=== PATIENT | female | born 1950 | race Caucasian/White ===

== ENCOUNTER 2017-04-15 11:04 | Day surgery (SDC) | payer MEDICARE, BC ==
--- NOTE | ~2017-04-15 | CN ---
Consultation Report [facility] [address] [place]. [address] NAME: GASTON VALENTIN : [birth year] STATUS : [facility]#: [id number] AGE: 66 ADM/REG DATE : 04/15/17 MR#: [id number] REPORT SERV DATE: 04/19/17 DICTATED BY: CODIE RUIZ DATE: 04/15/17 REPORT STATUS : Draft TRANSCRIBED BY: MODL DATE: 04/15/17 DATE OF CONSULTATION: 04/15/2017 HISTORY OF PRESENT ILLNESS: Gaston Valentin is a 66-year-old female, who presented to the GI lab today for a colonoscopy and EGD after having been seen in the office recently by my nurse practitioner for evaluation of iron-deficiency anemia. This patient was referred by Dr. Luis Antonio Knott for iron-deficiency anemia with a hemoglobin of 9.7 on 03/12/2017. She has had increased fatigue. She had occasional mid abdominal pain. She has had last long-standing reflux, taking omeprazole. She does have some nausea. She had left kidney removed for cancer in 2013. She is on Coumadin for DVTs and PEs, followed by Dr. Whelan in [place]. She had a colonoscopy in 2004 and no polyps. There is no prior history of EGD. She has a sister with colon polyps. The patient after having been seen in the office on 03/18/2017 was set up for the colon EGD. Stool Hemoccults were negative as an outpatient. Her hemoglobin on 04/07/2017 was 12.1. It was discerned by Dr. Whelan, her primary doctor that she needed to have a Lovenox bridge and he was managing that. The patient told me that she took her Lovenox today at 10:00 a.m. with a scheduled procedure for 1300 hours. She could not proceed with the colonoscopy because of the Lovenox having been given. PAST MEDICAL HISTORY: 1. Kidney cancer. 2. Diabetes mellitus. 3. Iron deficiency anemia. PAST SURGICAL HISTORY: 1. Cholecystectomy. 2. Hysterectomy. 3. Left oophorectomy. 4. Splenectomy. 5. Tonsillectomy. 6. Carpal tunnel release. MEDICATIONS: See list. ALLERGIES: NONE KNOWN. SOCIAL HISTORY: She was here with her daughter Nelsy. She does not smoke. FAMILY HISTORY: She has family history of colon polyps in her sister. REVIEW OF SYSTEMS: All system reviewed, negative except that noted in history of present illness. PHYSICAL EXAMINATION: Consultation Report [place] [id number] [place]. [address] NAME: GASTON VALENTIN : [birth year] STATUS : [facility] PAT#: [id number] AGE: 66 ADM/REG DATE : 04/15/17 MR#: [id number] REPORT SERV DATE: 04/19/17 DICTATED BY: CODIE RUIZ DATE: 04/15/17 REPORT STATUS : Draft TRANSCRIBED BY: SHANTANU DATE: 04/15/17 GENERAL: She is oriented x4, in no acute distress. VITAL SIGNS: She is afebrile. Vital signs stable. ABDOMINAL: Examination revealed active bowel sounds. Soft, nontender. IMPRESSION: 1. Iron deficiency anemia. 2. I am unable to proceed with colonoscopy, EGD today due to the patient's use of Lovenox as we like to have the Lovenox off 12 hours beforehand. We will try to arrange for the patient have the colonoscopy tomorrow afternoon at 4 o'clock if okay with her primary doctor with appropriate management of her diabetic medication. This can be done, she will take Lovenox tonight, 2 L of GoLYTELY tomorrow morning, be n.p.o. after 07:00 a.m. RECOMMENDATIONS: We will attempt to schedule colonoscopy for Wednesday at 04:00 p.m., otherwise will need to be scheduled on another date. As of the time of this dictation, I am waiting to hear from the GI lab who is in contact with Dr. Whelan's office regarding management of her diabetes. KELLY/SHANTANU Codie Ruiz M.D. / [id number] CC: Juan Worrell MD Davey B. Daniel, M.D.
[~2017-04-15 11:04] MED LIST: ATARAX50B PO; AZO-STANDARD95 MG PO; CHILDRENS VITAMIN; COUMADIN6 MG PO; FLEX PO; GLUCOPHAGE1000 MG PO; KLONO5 PO; L80 PO; LIPITOR10 PO; LOVENOX1C SC; MIRALAX POWDER1 PKT PO; NEUR100 PO; NORCO1 TAB PO; POTASSIUM PO; PRESERVISION A1 EACH PO; PRILO PO; RESTORIL30 MG PO; TOUJEO SQ; VICTOZA18 MG/3 ML SC; VITAMIN B-1500 MG PO; VITC500 PO
[2017-04-15 12:27] LABS: INTERNATIONAL NORMAL RATI 1.2 UNITS (-); PROTIME (NOT ORD) 14.6 SEC (12.0-14.5)
[2017-04-20] MEDS ORDERED: GLUCOPHAGE1000 MG PO (15:09)
[2017-04-22] MEDS ORDERED: KLOR-CON M2020 MEQ PO (10:38)
[2017-04-22] MEDS ORDERED: FLUCON150 PO (10:40)
[2017-04-22] MEDS ORDERED: LEVAQUIN750 MG PO (10:40)
[2017-04-22] MEDS ORDERED: FERROUS SULF325 M1 PO (10:42)
== END 2017-04-15 23:59 | disposition home health service (06) ==
LOC: DMU 11:04
PROVIDERS: Internal Medicine Gastroenterology
DX: D50.9 Iron deficiency anemia, unspecified (principal); J45.909 Unspecified asthma, uncomplicated; E11.22 Type 2 diabetes mellitus with diabetic chronic kidney disease; K21.9 Gastro-esophageal reflux disease without esophagitis; N18.3 Chronic kidney disease, stage 3 (moderate); Z86.711 Personal history of pulmonary embolism; Z79.891 Long term (current) use of opiate analgesic; Z79.4 Long term (current) use of insulin; Z79.899 Other long term (current) drug therapy; Z88.0 Allergy status to penicillin; Z90.49 Acquired absence of other specified parts of digestive tract; Z98.890 Other specified postprocedural states; Z87.442 Personal history of urinary calculi; Z90.710 Acquired absence of both cervix and uterus; Z90.81 Acquired absence of spleen; Z53.9 Procedure and treatment not carried out, unspecified reason
CPT/HCPCS: 82962; 85610

== ENCOUNTER 2017-04-16 15:07 | Day surgery (SDC) | payer MEDICARE, BC ==
--- NOTE | ~2017-04-16 | EGD ---
EGD REPORT [facility] [address] [address] NAME: GASTON VALENTIN : 46 STATUS : [facility] PAT#: [id number] AGE: 66 ADM/REG DATE : 04/16/17 MR#: [id number] REPORT SERV DATE: 04/16/17 DICTATED BY: CODIE RUIZ DATE: 04/16/17 REPORT STATUS : Draft TRANSCRIBED BY: [facility] DATE: 04/16/17 Endoscopy Center Patient Name: Gaston Valentin Date of : 1950 Attending MD: CODIE RUIZ MD Procedure Date No Time: 04/16/2017 Procedure: Upper GI endoscopy Indications: Iron deficiency anemia, Gastro-esophageal reflux disease, Nausea Referring MD: NEDA HANLEY MD, ANDREE COVINGTON Medicines: See the Anesthesia note for documentation of the administered medications Complications: No immediate complications. Procedure: After obtaining informed consent, the endoscope was passed under direct vision. Throughout the procedure, the patient's blood pressure, pulse, and oxygen saturations were monitored continuously. The GIF H190 [id number] was introduced through the mouth, and advanced to the second part of duodenum. The upper GI endoscopy was accomplished without difficulty. The patient tolerated the procedure well. Findings: The 2nd part of the duodenum was normal. Biopsies were taken with a cold forceps for histology. Mild inflammation was found in the gastric antrum. Biopsies were taken with a cold forceps for histology. The cardia and gastric fundus were normal on retroflexion. A small hiatus hernia was present. Impression: - Normal 2nd part of the duodenum. Biopsied. - Gastritis. Biopsied. - Hiatus hernia. Recommendation: - Patient has a contact number available for emergencies. The signs and symptoms of potential delayed complications were discussed with the patient. Return to normal activities tomorrow. Written discharge instructions were provided to the patient. - Regular diet. - Continue present medications. - FOR YOUR BIOPSY RESULTS: Please go to [email or web address] and register to receive your results via the portal. Your biopsy results will be posted there in about 7 to 10 days. IF you do not see EGD REPORT [address] [address] NAME: GASTON VALENTIN : 46 STATUS : [facility] PAT#: [id number] AGE: 66 ADM/REG DATE : 04/16/17 MR#: [id number] REPORT SERV DATE: 04/16/17 DICTATED BY: CODIE RUIZ DATE: 04/16/17 REPORT STATUS : Draft TRANSCRIBED BY: [employer] DATE: 04/16/17 result in 10 days, call office. Procedure Code(s): --- Professional --- 69239, Esophagogastroduodenoscopy, flexible, transoral; with biopsy, single or multiple Diagnosis Code(s): --- Professional --- K29.70, Gastritis, unspecified, without bleeding K44.9, Diaphragmatic hernia without obstruction or gangrene D50.9, Iron deficiency anemia, unspecified K21.9, Gastro-esophageal reflux disease without esophagitis R11.0, Nausea CPT copyright 2013 [employer]. All rights reserved. The codes documented in this report are preliminary and upon fleet manager/dispatch review may be revised to meet current compliance requirements. Codie Ruiz MD CODIE RUIZ MD 04/16/2017 5:17 PM This report has been signed electronically. Number of Addenda: 0 Note Initiated On: 04/16/2017 5:04 PM Scope Withdrawal Time 0 hours 0 minutes 0 seconds [address] [place] [address]
--- NOTE | ~2017-04-16 | EGD ---
EGD REPORT [facility] [address] [address] NAME: GASTON VALENTIN : 46 STATUS : [facility] PAT#: [id number] AGE: 66 ADM/REG DATE : 04/16/17 MR#: [id number] REPORT SERV DATE: 04/16/17 DICTATED BY: CODIE RUIZ DATE: 04/16/17 REPORT STATUS : Draft TRANSCRIBED BY: [employer] DATE: 04/16/17 Endoscopy Center Patient Name: Gaston Valentin Date of : 1950 Attending MD: CODIE RUIZ MD Procedure Date No Time: 04/16/2017 Procedure: Colonoscopy Indications: Iron deficiency anemia Referring MD: NEDA SHERMAN MD Medicines: See the Anesthesia note for documentation of the administered medications Complications: No immediate complications. Procedure: Pre-Anesthesia Assessment: - ASA Grade Assessment: III - A patient with severe systemic disease. After I obtained informed consent, the scope was passed under direct vision. Throughout the procedure, the patient's blood pressure, pulse, and oxygen saturations were monitored continuously. The PCF [id number] was introduced through the anus and advanced to the cecum, identified by appendiceal orifice and ileocecal valve. The colonoscopy was performed without difficulty. The patient tolerated the procedure well. The quality of the bowel preparation was adequate. Findings: The perianal and digital rectal examinations were normal. Internal hemorrhoids were found during retroflexion and were medium-sized. 10-12 large angioectasias were found in the ascending colon. A few angioectasias were found in the transverse colon. A few angioectasias were found in the descending colon. A few angioectasias were found in the sigmoid colon. A pedunculated polyp was found in the transverse colon. The polyp was 15 mm in size. The polyp was removed with a hot snare. Resection and retrieval were complete. To prevent bleeding post-intervention, one hemostatic clip was successfully placed. A sessile polyp was found in the recto-sigmoid colon. The polyp was 10 mm in size. The polyp was removed with a hot snare. Resection and retrieval were complete. Four sessile polyps were found in the rectum. The polyps were small in size. These polyps were removed with a cold biopsy forceps. Resection and retrieval were complete. Impression: - Internal hemorrhoids. EGD REPORT [place] [id number] [facility] [place] [place]. [address] NAME: GASTON VALENTIN : [birth year] STATUS : [facility] PAT#: [id number] AGE: 66 ADM/REG DATE : 04/16/17 MR#: [id number] REPORT SERV DATE: 04/16/17 DICTATED BY: CODIE RUIZ DATE: 04/16/17 REPORT STATUS : Draft TRANSCRIBED BY: [employer] DATE: 04/16/17 - 10-12 large colonic angioectasias. - A few colonic angioectasias. - A few colonic angioectasias. - A few colonic angioectasias. - One 15 mm polyp in the transverse colon. Resected and retrieved. Clip was placed. - One 10 mm polyp at the recto-sigmoid colon. Resected and retrieved. - Four small polyps in the rectum. Resected and retrieved. - There are a lot of angioectasias (AVMS) in her colon. High risk of bleeding if ablate and back on coumadin. Also, they could recur. Therefore, did not ablate. Would ablate only if hg could not be kept up with iron plus or minus transfusion. Recommendation: - Patient has a contact number available for emergencies. The signs and symptoms of potential delayed complications were discussed with the patient. Return to normal activities tomorrow. Written discharge instructions were provided to the patient. - Regular diet. - Continue present medications. - Repeat colonoscopy for surveillance based on pathology results. - Restart your coumadin and Lovenox tonight. Follow Dr Whelan's directions closely and follow up with him as directed. - Follow up with Dr Knott with periodic CBC - FOR YOUR BIOPSY RESULTS: Please go to [email or web address] and register to receive your results via the portal. Your biopsy results will be posted there in about 7 to 10 days. IF you do not see result in 10 days, call office. Procedure Code(s): --- Professional --- 34898, Colonoscopy, flexible, proximal to splenic flexure; with removal of tumor(s), polyp(s), or other lesion(s) by snare technique 23461, 59, Colonoscopy, flexible, proximal to splenic flexure; with biopsy, single or multiple Diagnosis Code(s): --- Professional --- K64.8, Other hemorrhoids K55.20, Angiodysplasia of colon without hemorrhage K62.1, Rectal polyp D12.7, Benign neoplasm of rectosigmoid junction EGD REPORT [address] [address] NAME: GASTON VALENTIN : [birth year] STATUS : [facility] PAT#: [id number] AGE: 66 ADM/REG DATE : 04/16/17 MR#: [id number] REPORT SERV DATE: 04/16/17 DICTATED BY: CODIE RUIZ DATE: 04/16/17 REPORT STATUS : Draft TRANSCRIBED BY: [employer] DATE: 04/16/17 D12.3, Benign neoplasm of transverse colon D50.9, Iron deficiency anemia, unspecified CPT copyright 2013 [employer]. All rights reserved. The codes documented in this report are preliminary and upon canine deputy review may be revised to meet current compliance requirements. Codie Ruiz MD CODIE RUIZ MD 04/16/2017 6:02 PM This report has been signed electronically. Number of Addenda: 0 Note Initiated On: 04/16/2017 4:50 PM Scope Withdrawal Time 0 hours 28 minutes 25 seconds [address] [address]
[2017-04-20] MEDS ORDERED: GLUCOPHAGE1000 MG PO (15:09)
[2017-04-22] MEDS ORDERED: KLOR-CON M2020 MEQ PO (10:38)
[2017-04-22] MEDS ORDERED: FLUCON150 PO (10:40)
[2017-04-22] MEDS ORDERED: LEVAQUIN750 MG PO (10:40)
[2017-04-22] MEDS ORDERED: FERROUS SULF325 M1 PO (10:42)
== END 2017-04-16 23:59 | disposition home or self-care (01) ==
LOC: DMU 15:07
PROVIDERS: Internal Medicine Gastroenterology
PROC: 0DBN8ZZ Excision of Sigmoid Colon, Via Natural or Artificial Opening Endoscopic (ICD-10-PCS; 2017-04-16)
PROC: 0DBP8ZZ Excision of Rectum, Via Natural or Artificial Opening Endoscopic (ICD-10-PCS; 2017-04-16)
PROC: 0DB98ZX Excision of Duodenum, Via Natural or Artificial Opening Endoscopic, Diagnostic (ICD-10-PCS; principal; 2017-04-16 16:00)
PROC: 0DB68ZX Excision of Stomach, Via Natural or Artificial Opening Endoscopic, Diagnostic (ICD-10-PCS; 2017-04-16 16:00)
PROC: 0DBL8ZZ Excision of Transverse Colon, Via Natural or Artificial Opening Endoscopic (ICD-10-PCS; 2017-04-16 16:00)
DX: D12.0 Benign neoplasm of cecum (principal); D12.3 Benign neoplasm of transverse colon; K63.5 Polyp of colon; K62.1 Rectal polyp; K29.50 Unspecified chronic gastritis without bleeding; K44.9 Diaphragmatic hernia without obstruction or gangrene; K64.8 Other hemorrhoids; K55.20 Angiodysplasia of colon without hemorrhage; K21.9 Gastro-esophageal reflux disease without esophagitis; E11.9 Type 2 diabetes mellitus without complications; E78.00 Pure hypercholesterolemia, unspecified; D50.9 Iron deficiency anemia, unspecified; Z86.718 Personal history of other venous thrombosis and embolism; J45.909 Unspecified asthma, uncomplicated; Z88.0 Allergy status to penicillin; Z85.528 Personal history of other malignant neoplasm of kidney; Z90.710 Acquired absence of both cervix and uterus; Z90.81 Acquired absence of spleen; Z90.5 Acquired absence of kidney; Z79.01 Long term (current) use of anticoagulants; Z79.4 Long term (current) use of insulin; Z79.84 Long term (current) use of oral hypoglycemic drugs; Z79.899 Other long term (current) drug therapy; Z98.890 Other specified postprocedural states
CPT/HCPCS: 82962; 88305